=== PATIENT | female | born 1990 ===

== ENCOUNTER 2017-05-04 09:22 | Emergency (ER) | payer MEDICAID ==
[2017-05-04 09:32] VITALS: BP 100/68; PULSE 77; TEMP 97; O2SAT 100
[2017-05-04 09:33] VITALS: BMI 24.4
[2017-05-04 09:47] VITALS: RESP 18
[2017-05-04] MEDS ORDERED: Lactated Ringer's 1,000 ML IV STA (10:22)
--- NOTE | 2017-05-04 10:44 | ED PDOC ---
HPI: General Adult Time Seen by Provider: 05/04/17 09:45 Chief Complaint (Nursing): GI Problem Chief Complaint (Provider): Abdominal pain, left and nausea x 2-3 weeks Additional Complaint(s): 26 yo LMP 02/17/18 comes to the ER for evaluation of abdominal pain on the left and nausea x 4 weeks. Pt states she has appointment for OB today but the clinic was closed due to the weather. PT states she called and was told to come to the ER for evaluation. PT is approx 11 weeks . Pt has not yet had care and has not been taking any vitamins. Pt also reports smoking marijuana because she did not know she was . Past Medical History Reviewed: Historical Data, Nursing Documentation, Vital Signs Vital Signs: Last Vital Signs Temp 97 F L 05/04/17 09:44 Pulse 77 05/04/17 09:44 Resp 18 05/04/17 09:44 BP 100/68 05/04/17 09:44 Pulse Ox 100 05/04/17 10:51 - Medical History PMH: No Chronic Diseases - Surgical History Surgical History: No Surg Hx - Family History Family History: States: No Known Family Hx - Living Arrangements Living Arrangements: With Family - Social History Current smoker - smoking cessation education provided: No - Home Medications Home Medications: Ambulatory Orders Medication Instructions Recorded Doxylamine/Pyridoxine HCl (B6) 2 each PO QPM #28 tablet. 05/04/17 [Eliceo Mims 10-10 mg Tablet] - Allergies Allergies/Adverse Reactions: Allergies Allergy/AdvReac Type Severity Reaction Status Date / Time No Known Allergies Allergy Verified 05/04/17 10:11 Review of Systems ROS Statement: Except As Marked, All Systems Reviewed And Found Negative Constitutional: Negative for: Fever, Chills Gastrointestinal: Positive for: Nausea, Vomiting Genitourinary Female: Positive for: Pelvic Pain (Left side ). Negative for: Vaginal Bleeding Physical Exam - Reviewed Nursing Documentation Reviewed: Yes Vital Signs Reviewed: Yes - Physical Exam Appears: Positive for: Well, Non-toxic, No Acute Distress Head Exam: Positive for: ATRAUMATIC, NORMAL INSPECTION, NORMOCEPHALIC Skin: Positive for: Normal Color, Warm, DRY Eye Exam: Positive for: Normal appearance ENT: Positive for: Normal ENT Inspection Neck: Positive for: Normal, Painless ROM Cardiovascular/Chest: Positive for: Regular Rate, Rhythm Respiratory: Positive for: Normal Breath Sounds. Negative for: Accessory Muscle Use, Respiratory Distress Gastrointestinal/Abdominal: Positive for: Normal Exam, Bowel Sounds, Soft. Negative for: Tenderness Back: Positive for: Normal Inspection Extremity: Positive for: Normal ROM Neurologic/Psych: Positive for: Alert, Oriented - Laboratory Results Result Diagrams: 05/04/17 10:35 05/04/17 10:35 - ECG O2 Sat by Pulse Oximetry: 100 Medical Decision Making Medical Decision Making: (+) IUP on US. Labs normal. Disposition - Clinical Impression Clinical Impression: Nausea/vomiting in - Patient ED Disposition Is Patient to be Admitted: No Counseled Patient/Family Regarding: Diagnosis, Need For Followup, Rx Given - [facility]position [facility] Disposition: Routine/Home Disposition Time: 12:50 Condition: GOOD Additional Instructions: Please begin vitamins. Please seen OB for care. Prescriptions: Doxylamine/Pyridoxine HCl (B6) [Eliceo Mims 10-10 mg Tablet] 2 each PO QPM #28 tablet. Instructions: Morning Sickness (DC) Forms: [facility] (Maltese)
[2017-05-04 10:49] LABS: HEMOGLOBIN 12.4 g/dL (12.0-16.0); MEAN CELL VOLUME 91.9 fl (81.0-99.0); MEAN CORPUSCULAR HEMOGLOBIN 31.7 pg (27.0-31.0); MEAN CORPUSCULAR HGB CONC 34.5 g/dL (33.0-37.0); RBC 3.91 Mil/uL (3.80-5.20); RED CELL DISTRIBUTION WIDTH 15.1 % (11.5-14.5); WHITE BLOOD COUNT 9.5 K/uL (4.8-10.8)
[2017-05-04 11:03] LABS: ALB/GLOB RATIO 1.3 (1.0-2.1); ALBUMIN 3.9 g/dL (3.5-5.0); ALT/SGPT 22 U/L (9-52); AST/SGOT 17 U/L (14-36); BLOOD UREA NITROGEN 10 mg/dl (7-17); CALCIUM 9.2 mg/dL (8.4-10.2); GFR AFRICAN-AMERICAN > 60; GFR NON-AFRICAN AMERICAN > 60; SQUAMOUS EPITHIAL 45 /hpf (0-5); URINE BACTERIA MANY (<OCC); URINE BILIRUBIN NEGATIVE (NEGATIVE); URINE BLOOD SMALL (NEGATIVE); URINE CLARITY CLOUDY (Clear); URINE COLOR AMBER (YELLOW); URINE GLUCOSE (UA) NEG (Normal); URINE LEUKOCYTE ESTERASE SMALL Leu/uL (Negative); URINE NITRATE NEGATIVE (NEGATIVE); URINE PROTEIN 30 mg/dL (NEGATIVE); URINE UROBILINOGEN 0.2-1.0 mg/dL (0.2-1.0)
[2017-05-04 11:10] LABS: BARBITURATES, UR NEGATIVE (NEGATIVE); BENZODIAZEPINES, UR NEGATIVE (NEGATIVE); OPIATES, UR NEGATIVE (NEGATIVE); PHENCYCLIDINE, UR NEGATIVE (NEGATIVE)
--- NOTE | 2017-05-04 12:11 | US ---
PROCEDURE: OB Pelvic Ultrasound HISTORY: abdominal pain in , no care LMP: 02/17/2017 COMPARISON: None available. FINDINGS: UTERUS: Gestational sac: Single intrauterine gestation. Measures 4.9 cm compatible with estimated gestational age of 10 weeks, 4 days Yolk sac: Not visualized pole: [place]-rump length measures 4.2 cm compatible with estimated gestational age of 11 weeks, 1 day Heart rate: 164 bpm. age (Ultrasound estimated): 10 weeks, 6 days [place]-gestational hemorrhage: None. Date of delivery (Ultrasound estimated) : 11/24/2017 Uterus measures 10.5 x 6.6 x 8.3 cm. Anteverted. Normal in size and appearance. CERVIX: Long and closed. No cervical abnormality seen. RIGHT OVARY: Measures 3.3 x 1.8 x 2.7 cm. No mass lesion. Normal flow. LEFT OVARY: Measures 2.8 x 1.6 x 2.7 cm. No solid mass. Normal flow. FREE FLUID: None. OTHER FINDINGS: None. IMPRESSION: Single viable intrauterine gestation with average ultrasound age ten weeks, 6 days. heart rate 164 beats per minute. Cervix long and closed.
== END 2017-05-04 13:23 | disposition home or self-care (01) ==
LOC: H.ER 09:22
DX: O21.9 Vomiting of pregnancy, unspecified (principal); O26.891 Other specified pregnancy related conditions, first trimester; Z3A.11 11 weeks gestation of pregnancy; F12.90 Cannabis use, unspecified, uncomplicated
CPT/HCPCS: 76815; 80053; 80324; 80345; 80346; 80349; 80353; 80358; 80361; 81003; 83992; 84702; 85027; 86850; 86900; 87086; 96360; 99282; J7120

== ENCOUNTER 2017-05-26 15:55 | Emergency (ER) | payer MEDICAID ==
[2017-05-26 15:55] VITALS: BMI 24.4
--- NOTE | 2017-05-26 16:47 | ED PDOC ---
HPI: Female Pain Time Seen by Provider: 05/26/17 16:37 Chief Complaint (Nursing): GI Problem Chief Complaint (Provider): with abd pain History Per: Patient Additional Complaint(s): 26-year-old female, 15 weeks (, has 3 elective abortions in the past) presents with persistent vomiting and inability to keep down liquids or solids for about 1 month. Patient also has cramping abdominal pain. She was given a prescription for diclegis on May 04 and never filled the prescription due to insurance issues. She has been trying to take vitamins but has been unable to keep this down. No associated diarrhea, no fever or chills. No vaginal bleeding. Patient has not had visit as of yet. Past Medical History Reviewed: Historical Data, Nursing Documentation, Vital Signs Vital Signs: Last Vital Signs Temp 98.4 F 05/26/17 16:20 Pulse 100 H 05/26/17 16:20 Resp 18 05/26/17 16:20 BP 113/69 05/26/17 16:20 Pulse Ox 99 05/26/17 16:20 - Medical History PMH: No Chronic Diseases - Family History Family History: States: No Known Family Hx - Living Arrangements Living Arrangements: With Family - Social History Current smoker - smoking cessation education provided: No Alcohol: None Drugs: Denies - Home Medications Home Medications: Ambulatory Orders Medication Instructions Recorded Doxylamine/Pyridoxine HCl (B6) 2 each PO QPM #28 tablet. 05/04/17 [Diclegis Dr 10-10 mg Tablet] Doxylamine/Pyridoxine HCl (B6) 2 tab PO ASDIR #60 tab 05/26/17 [Diclegis Dr 10-10 mg Tablet] - Allergies Allergies/Adverse Reactions: Allergies Allergy/AdvReac Type Severity Reaction Status Date / Time No Known Allergies Allergy Verified 05/04/17 10:11 Review of Systems ROS Statement: Except As Marked, All Systems Reviewed And Found Negative Constitutional: Negative for: Fever Cardiovascular: Negative for: Chest Pain Respiratory: Negative for: Cough Gastrointestinal: Positive for: Nausea, Vomiting, Abdominal Pain. Negative for : Diarrhea Genitourinary Female: Negative for: Dysuria, Vaginal Bleeding Physical Exam - Reviewed Nursing Documentation Reviewed: Yes Vital Signs Reviewed: Yes - Physical Exam Appears: Positive for: Well, Non-toxic, No Acute Distress Skin: Negative for: Rash Eye Exam: Positive for: Normal appearance Cardiovascular/Chest: Positive for: Regular Rate, Rhythm Respiratory: Positive for: Normal Breath Sounds Gastrointestinal/Abdominal: Positive for: Other (Gravid nontender abdomen) Back: Negative for: L CVA Tenderness, R CVA Tenderness Extremity: Positive for: Normal ROM Neurologic/Psych: Positive for: Alert, Oriented - Laboratory Results Result Diagrams: 05/26/17 17:46 05/26/17 17:46 Urine POC: Positive - ECG O2 Sat by Pulse Oximetry: 99 Pulse Ox Interpretation: Normal - Other Rad OB US X-Ray: Read By Radiologist X-Ray Interpretation: see below Medical Decision Making Medical Decision Makin-year-old female, 15 weeks with nausea and vomiting and abdominal pain Plan: Urine dip OB US IVF CBC CMP Beta IV reglan US: FINDINGS: Gestation: Single live intrauterine . Positive heart rate measured at 173 bpm. Variable position. Mean ultrasound age of 14 weeks 3 days. BPD 2.75 cm, AC 8.19 cm, HC 9.97 cm, FL 1.27 cm. Placenta/ amniotic fluid: Posterior. Uterus/cervix: Cervix measured at 3 cm. No acute abnormality as visualized. No myometrial mass. Ovaries: No acute abnormality as visualized. Doppler flow noted. Free fluid: No free fluid. IMPRESSION: Single live IUP as above. Limited study. Patient feels much better, she is tolerating PO with no further emesis noted. Rx given for diclegis. Advised OB follow up KHURRAM. Disposition - Clinical Impression Clinical Impression: Hyperemesis gravidarum, Abdominal pain affecting - Patient ED Disposition Is Patient to be Admitted: No Counseled Patient/Family Regarding: Studies Performed, Diagnosis, Need For Followup, Rx Given - Disposition Referrals: Josephine Jimenez MD [Family Provider] - Disposition: Routine/Home Disposition Time: 19:10 Condition: IMPROVED Additional Instructions: DRINK PLENTY OF FLUIDS AND FOLLOW BLAND DIET TAKE RX MEDS DIRECTED. FOLLOW UP KHURRAM WITH OB. Prescriptions: Doxylamine/Pyridoxine HCl (B6) [Eliceo Mims 10-10 mg Tablet] 2 tab PO ASDIR #60 tab Instructions: Hyperemesis Gravidarum, - The Fourth Month Forms: [employer] (Kazakh) Results - Lab Results Lab Results: 05/26/17 05/26/17 17:46 17:46 WBC 10.0 RBC 4.30 Hgb 13.4 Hct 39.8 MCV 92.6 MCH 31.1 H MCHC 33.6 RDW 14.7 H Plt Count 166 MPV 9.7 Neut % (Auto) 80.3 H Lymph % (Auto) 7.9 L Osborne % (Auto) 10.8 H Eos % (Auto) 0.3 Baso % (Auto) 0.7 Neut # (Auto) 8.0 H Lymph # (Auto) 0.8 L [place] # (Auto) 1.1 H Eos # (Auto) 0.0 Baso # (Auto) 0.1 Neutrophils % (Manual) Pending Lymphocytes % (Manual) Pending Monocytes % (Manual) Pending Platelet Estimate Pending Sodium 139 Potassium 3.7 Chloride 104 Carbon Dioxide 22 Anion Gap 17 BUN 7 Creatinine 0.6 L Est GFR ( Amer) > 60 Est GFR (Non-Af Amer) > 60 Random Glucose 88 Calcium 9.6 Total Bilirubin 0.4 AST 19 ALT 26 Alkaline Phosphatase 56 Total Protein 7.9 Albumin 4.2 Globulin 3.7 Albumin/Globulin Ratio 1.1 Beta HCG, Quant 58635.00
[2017-05-26] MEDS ORDERED: Sodium Chloride 0.9% 1,000 ML IV STA ×2 (17:13→17:14)
[2017-05-26 18:02] LABS: BASO # 0.1 K/uL (0.0-0.2); BASO % 0.7 % (0.0-2.0); EOS % 0.3 % (0.0-4.0); HEMOGLOBIN 13.4 g/dL (12.0-16.0); LYMPH # 0.8 K/uL (1.0-4.3); LYMPH % 7.9 % (20.0-40.0); MEAN CELL VOLUME 92.6 fl (81.0-99.0); MEAN CORPUSCULAR HEMOGLOBIN 31.1 pg (27.0-31.0); MEAN CORPUSCULAR HGB CONC 33.6 g/dL (33.0-37.0); MEAN PLATELET VOLUME 9.7 fl (7.2-11.7); MONO # 1.1 K/uL (0.0-0.8); MONO % 10.8 % (0.0-10.0); NEUT % 80.3 % (50.0-75.0); PLATELET COUNT 166 K/uL (130-400); RED CELL DISTRIBUTION WIDTH 14.7 % (11.5-14.5)
[2017-05-26 18:15] LABS: ALB/GLOB RATIO 1.1 (1.0-2.1); ALBUMIN 4.2 g/dL (3.5-5.0); ALT/SGPT 26 U/L (9-52); AST/SGOT 19 U/L (14-36); BLOOD UREA NITROGEN 7 mg/dl (7-17); CALCIUM 9.6 mg/dL (8.4-10.2); GFR AFRICAN-AMERICAN > 60; GFR NON-AFRICAN AMERICAN > 60
--- NOTE | 2017-05-26 18:42 | US ---
EXAM: US CLINICAL HISTORY: 26 years old, female; Pain; complicated by abdominal or pelvic pain; Generalized abdominal pain; Second trimester; Gestational age or lmp: Lmp: 02/17/2017; ; Additional info: 15 weeks, abd pain TECHNIQUE: Real-time transabdominal obstetrical ultrasound of the maternal pelvis and with image documentation. COMPARISON: No relevant prior studies available. FINDINGS: Gestation: Single live intrauterine . Positive heart rate measured at 173 bpm. Variable position. Mean ultrasound age of 14 weeks 3 days. BPD 2.75 cm, AC 8.19 cm, HC 9.97 cm, FL 1.27 cm. Placenta/amniotic fluid: Posterior. Uterus/cervix: Cervix measured at 3 cm. No acute abnormality as visualized. No myometrial mass. Ovaries: No acute abnormality as visualized. Doppler flow noted. Free fluid: No free fluid. IMPRESSION: Single live IUP as above. Limited study.
[2017-05-26 18:48] VITALS: O2SAT 99
[2017-05-26 19:23] VITALS: BP 103/68; PULSE 86; RESP 16; TEMP 98.2
[2017-05-26 20:30] LABS: EOSINOPHIL 1 % (0-7); LYMPHOCYTE 13 % (20-50); MONOCYTE 7 % (0-10); NEUTROPHIL 78 % (42-75); PLATELET ESTIMATE NORMAL (NORMAL); REACTIVE LYMPHOCYTES 1 % (0-0); TOTAL CELLS COUNTED 100
== END 2017-05-26 19:48 | disposition home or self-care (01) ==
LOC: H.ER 15:55
DX: O21.0 Mild hyperemesis gravidarum (principal); O26.892 Other specified pregnancy related conditions, second trimester; Z3A.15 15 weeks gestation of pregnancy
CPT/HCPCS: 76815; 80053; 81025; 84702; 85025; 96360; 99283; J2765; J7040

== ENCOUNTER → 2017-11-19 | Emergency (ER) | payer MEDICAID ==
[2017-09-21 09:20] VITALS: BMI 24.4
--- NOTE | 2017-11-19 07:22 | OBDCSUM ---
Datetime: 11/19/2017 02:10 Discharged to, Provider: Home Follow up at, Provider: [facility] Disch Instr Activity: Normal activity Disch Instr Diet: Regular Discharge Diagnosis, Provider: False Labor - Undelivered Discharge Time: 11/19/2017 02:10 Follow up in weeks, Provider: 11/23/2017 Disch Referrals: None Discharge Comment, Provider: No cervical change
[2017-11-19 11:50] VITALS: TEMP 98.7
== END | disposition home or self-care (01) ==
LOC: H.EROB2 00:34
DX: O26.93 Pregnancy related conditions, unspecified, third trimester (principal); R10.2 Pelvic and perineal pain; O47.1 False labor at or after 37 completed weeks of gestation; Z3A.39 39 weeks gestation of pregnancy

== ENCOUNTER 2017-11-26 17:47 | Emergency (ER) | payer MEDICAID ==
[2017-09-21 09:20] VITALS: BMI 24.4
--- NOTE | 2017-11-26 23:31 | OBDCSUM ---
Datetime: 11/26/2017 23:11 Discharged to, Provider: Home Follow up at, Provider: [facility] Disch Instr Activity: Normal activity Disch Instr Diet: Regular Discharge Instructions, Provider: Routine instructions given Discharge Time: 11/26/2017 23:11 Follow up in weeks, Provider: 11/27/2017 Disch Referrals: None Discharge Diagnosis Prov Other: Prolonged monitoring
--- NOTE | 2017-11-26 23:31 | OBHP ---
Datetime: 11/26/2017 19:31 IP Adm Impression: Term, intrauterine IP Admit Plan: Observation/Evaluation; Discharge home Admit Comment, IP Provider: 27 y/o , 40.2 wks based on LMP of 02/17/18 with RYAN of 11/24/17 se nt to [facility] from [facility] due to nonreactive NST. As per Dr. Lim patient needs extended NST/EFM monitori ng. Reports lower abdominal pressure and irregular contractions. Patient reports normal movemen ts. Denies LOF or VB. Tolerating diet well PO without any nausea, vomiting, diarrhea, fever, chills. Denies any dysuria or back pain. PNC: Dr. Lim, [facility] course: +THC, followed by negative drug screen. + GBS, Nonreactive NST today at clinic. L ast US 1.5 month ago, Next US tomorrow if discharged today. PObHx: 2 miscarriage at 6 wks and 12 weeks, doesn't remember years PMHx: Denies PSHx: Denies Allergies: NKDA F/H: Noncontributory SocialHx: Denies alcohol/tobacco/drug use PE General: NAD Chest: RRR, S1S2 , no murmurs Lungs: CTA B/L, No wheeze Abdomen: Gravid, NT Back: CVA absent B/L Ext: No pedal edema, Calf tenderness A/P: 27 y/o , 40.2 wks based on LMP of 02/17/18 with RYAN of 11/24/17 sent to [facility] from [facility] d ue to nonreactive NST. - EFM and [place] monitoring - Extended EFM, NST reactive, 140s, with moderate variability, + accels, No decels - Scheduled for US tmorrow - Scheduled for IOL on 11/30/17 Case disussed with the attending Cristino Mendoza, PGY1 OB Hospitalist Addendum: Pt seen by me. Agree w/ above. 27 yo at 40+2 wks sent to OB for prolonged monitoring for nonreactive NST in the office. NST reactive. Prolonged monitoring is reas suring. Pt sent home w/ labor precautions. Pt has an appoint for u/s tomorrow at 11 am and is sched uled for IOL on Fri evening, 11/30/2017. (ES) Pelvic Type - PN: Adequate Extremities - PN: Not Done Abdomen - PN: Normal Back - PN: Normal Breast - PN: Not Done Lungs - PN: Normal Heart - PN: Normal Thyroid - PN: Not Done Neurologic - PN: Normal HEENT - PN: Normal General - PN: Normal FHR - Baseline A Provider: 120's Comments, ACOG Physical Exam: General: NAD Chest: RRR, S1S2 , no murmurs Lungs: CTA B/L, No wheeze Abdomen: Gravid, NT Back: CVA absent B/L Ext: No pedal edema, Calf tenderness IP Hx Assessment: The History has been Reviewed and is Current EGA AdmitDate IP: 40.2 IP Chief Complaint: evaluation NICHD Variability Prov Fetus A: Moderate 6-25bpm NICHD Accel Fetus A IP Provider: [id number] FHR Category Provider Fetus A: Category I NICHD Decel Fetus A IP Provider: None Genitourinary Exam: Not Done DTRs - PN: Normal Datetime: 11/19/2017 01:07 Presentation-Admit: Vertex IP Fetus A Comments: sono Membranes, Provider: Intact Contraction Comments Provider: occ Pool Provider: Negative Dilatation, Provider: 1-2 Effacement, Provider: long Station, Provider:
== END 2017-11-26 23:11 | disposition home or self-care (01) ==
LOC: H.EROB2 17:47
DX: O26.93 Pregnancy related conditions, unspecified, third trimester (principal); R10.2 Pelvic and perineal pain; Z3A.40 40 weeks gestation of pregnancy; O48.0 Post-term pregnancy

== ENCOUNTER 2017-11-27 03:02 | Inpatient (IN) | payer MEDICAID ==
[2017-11-27] MEDS ORDERED: Penicillin G Potassium 5 MU in Sodium Chloride 0.9% 50 ML IVPB ONE (03:50)
[2017-11-27] MEDS ORDERED: Lactated Ringer's 1,000 ML IV ONE (03:50)
--- NOTE | 2017-11-27 05:24 | OBADHP ---
Datetime: 11/27/2017 04:04 Admit Comment, IP Provider: 27 y/o , 40.3 wks based on LMP of 02/17/18 with RYAN of 11/24/17 se nt to [facility] from for uterine contractions. Contractions are more regular, Q3-5 mins, increased in inte nsity and pressure. Patient was evaluated in [facility] yesterday for peolonged EFM which was reactive. Pat ient reports normal movements. Denies LOF or VB. PNC: Dr. Lim, [facility] course: +THC, followed by negative drug screen. + GBS, Nonreactive NST yesterday at [facility]. Last US 1.5 month ago PObHx: 2 miscarriage at 6 wks and 12 weeks, doesn't remember years PMHx: Denies PSHx: Denies Allergies: NKDA F/H: Noncontributory SocialHx: Denies alcohol/tobacco/drug use PE General: in acute distress Chest: RRR, S1S2 , no murmurs Lungs: CTA B/L, No wheeze Abdomen: Gravid, NT Ext: No pedal edema or Calf tenderness SVE: 3 cm/100%/-1 A/P: 27 y/o , 40.3 wks presents with painful uterine contractions Q3-5mins - EFM and [place] monitoring - 3/100%/-1 on cervical exam - Admit patient to unit - LR 2L@ 999ml/hr - LR 1L @125 ml/hr - GBS +, Penicillin 5 million unit/100 ml followed by 2.5 million unit Q4hr - CBC, Type and screen - Anesthesia consult - NPO Case discussed with attending Cristino Mendoza, PGY1 OB Hospitalist Addendum: Pt seen and examined by me. Agree a/ above. 27 yo at 40+3 wks w/ painful ctxns, in labor. Pt desires an epidural. Wll start PCN for GBS prophylaxis. (ES) Pelvic Type - PN: Not Done Extremities - PN: Normal Abdomen - PN: Normal Back - PN: Normal Breast - PN: Normal Lungs - PN: Normal Heart - PN: Normal Thyroid - PN: Not Done Neurologic - PN: Normal HEENT - PN: Normal General - PN: Normal FHR - Baseline A Provider: 120 Membranes, Provider: Intact Contraction Comments Provider: regular Comments, ACOG Physical Exam: General: in acute distress Chest: RRR, S1S2 , no murmurs Lungs: CTA B/L, No wheeze Abdomen: Gravid, NT Ext: No pedal edema, Calf tenderness SVE: 3 cm/100%/-1 IP Hx Assessment: The History has been Reviewed and is Current Vital Signs Provider: Reviewed; Within Normal Limits IP Chief Complaint: Uterine contractions; Maternal discomfort FHR Category Provider Fetus A: Category I NICHD Decel Fetus A IP Provider: None Dilatation, Provider: 3 Effacement, Provider: 100 Station, Provider: -1 Genitourinary Exam: Normal DTRs - PN: Not Done EGA AdmitDate IP: 40.3 IP Adm Impression: Term, intrauterine IP Admit Plan: Admit to unit Datetime: 11/27/2017 03:56 NICHD Variability Prov Fetus A: Moderate 6-25bpm NICHD Accel Fetus A IP Provider: [id number] Datetime: 11/19/2017 01:07 Presentation-Admit: Vertex IP Fetus A Comments: sono Pool Provider: Negative
[2017-11-27] MEDS: Lactated Ringer's 1,000 ML IV SCH ×2 (06:00→13:36)
[2017-11-27 06:19] VITALS: BMI 26.9
[2017-11-27] MEDS ORDERED: Fentanyl/Bupivacaine HCl 250 ML EPI ONE (06:19)
[2017-11-27] MEDS ORDERED: Penicillin G 5 Million Unit Vial IVPB ONE (06:57)
[2017-11-27 07:57] LABS: BASO # 0.1 K/uL (0.0-0.2); BASO % 1.1 % (0.0-2.0); EOS # 0.2 K/uL (0.0-0.7); EOS % 1.4 % (0.0-4.0); HEMOGLOBIN 11.7 g/dL (12.0-16.0); LYMPH # 2.5 K/uL (1.0-4.3); LYMPH % 21.2 % (20.0-40.0); MEAN CELL VOLUME 82.6 fl (81.0-99.0); MEAN CORPUSCULAR HGB CONC 32.6 g/dL (33.0-37.0); MONO # 1.1 K/uL (0.0-0.8); MONO % 9.3 % (0.0-10.0); NRBC % 0.1 % (0.0-0.0); RBC 4.33 Mil/uL (3.80-5.20); RED CELL DISTRIBUTION WIDTH 15.4 % (11.5-14.5)
[2017-11-27 08:19] VITALS: O2SAT 100
[2017-11-27] MEDS ORDERED: Lidocaine 2% PF (10 ml) Amp ONE (11:43)
[2017-11-27] MEDS ORDERED: Oxytocin 30 UNIT 30 UNITS/500 ML BAG IV ONE (12:26)
[2017-11-27] MEDS ORDERED: OXYTOCIN/0.9 % NS 20 UNIT/1,000 ML BAG IV SCH (12:30)
--- NOTE | 2017-11-27 12:42 | OBPN ---
Datetime: 11/27/2017 12:35 IP Progress Impression: Reassuring heart rate IP Informed Consent Obtain: Vaginal Delivery IP Procedures: Artificial ROM IP Progress Plan: Continue present management; Augmentation; Anticipate Vaginal Delivery Pool Provider: Negative Membranes, Provider: Ruptured Amniotic Fluid Color, Provider: Clear Contraction Comments Provider: occ FHR - Baseline A Provider: 120 Presentation-Admit: Vertex NICHD Accel Fetus A IP Provider: [id number] FHR Category Provider Fetus A: Category I NICHD Variability Prov Fetus A: Moderate 6-25bpm Dilatation, Provider: 6 Effacement, Provider: 90 Station, Provider: 0 NICHD Decel Fetus A IP Provider: None Datetime: 11/27/2017 09:00 IP Progress Note Comment: S: Patient laying in bed comfortably s/p epidural O: SVE (Chaperoned by Fellow Dr. Connelly) 4cm dilated, long, and bulging A: 27 y/o , 40.3 wks presents c/o painful uterine contractions Q3-5mins P: cont present mangement, pencillin G at 11 Vital Signs Provider: Reviewed; Within Normal Limits Datetime: 11/19/2017 01:07 IP Fetus A Comments: torsteno
--- NOTE | 2017-11-27 15:17 | OBPN ---
Datetime: 11/27/2017 15:00 IP Progress Impression: Normal progression of labor IP Progress Plan: Continue present management; Anticipate Vaginal Delivery Pool Provider: Positive Membranes, Provider: Ruptured Amniotic Fluid Color, Provider: Clear Contraction Comments Provider: q3-5m FHR - Baseline A Provider: 120 IP Progress Note Comment: She feels lower pelvic pressure Second stage of labor - anticiapte NICHD Accel Fetus A IP Provider: [id number] FHR Category Provider Fetus A: Category I NICHD Variability Prov Fetus A: Moderate 6-25bpm Dilatation, Provider: 10 Effacement, Provider: 100 Station, Provider: 1 NICHD Decel Fetus A IP Provider: None Datetime: 11/27/2017 09:00 Gestation - Est Wks by US: 40.3
--- NOTE | 2017-11-27 15:23 | OBPN ---
Datetime: 11/27/2017 09:00 IP Progress Note Comment: S: Patient laying in bed comfortably s/p epidural O: SVE (Chaperoned by Fellow Dr. Connelly) 4cm dilated, long, and bulging A: 27 y/o , 40.3 wks presents c/o painful uterine contractions Q3-5mins P: cont present mangement, pencillin G at 11 Case discussed w/ attending physician Kaitlyn Vu PGYI OB Hospitalist on-call - sign out rec'd...made aware of pregress - pt has epidural only and is rel ieved of pain. ALYSSA
[2017-11-27] MEDS ORDERED: Benzocaine/Menthol SPRAY TOP PRN ×2 (16:08→17:42)
[2017-11-27] MEDS: Oxycodone/Acetaminophen 5/325 mg Tab PO PRN (22:44)
[2017-11-28 06:36] LABS: BASO % 0.2 % (0.0-2.0); EOS # 0.2 K/uL (0.0-0.7); LYMPH # 2.2 K/uL (1.0-4.3); LYMPH % 14.6 % (20.0-40.0); MEAN CELL VOLUME 83.4 fl (81.0-99.0); MEAN CORPUSCULAR HEMOGLOBIN 27.6 pg (27.0-31.0); MEAN CORPUSCULAR HGB CONC 33.1 g/dL (33.0-37.0); MEAN PLATELET VOLUME 10.4 fl (7.2-11.7); MONO # 1.2 K/uL (0.0-0.8); MONO % 7.8 % (0.0-10.0); NEUT # 11.6 K/uL (1.8-7.0); NEUT % 76.4 % (50.0-75.0); NRBC % 0.1 % (0.0-0.0); RBC 2.9 Mil/uL (3.80-5.20); RED CELL DISTRIBUTION WIDTH 15.5 % (11.5-14.5); WHITE BLOOD COUNT 15.1 K/uL (4.8-10.8)
[2017-11-28] MEDS: Oxycodone/Acetaminophen 5/325 mg Tab PO PRN ×3 (08:28→22:33)
--- NOTE | 2017-11-28 10:23 | OBPPN ---
Datetime: 11/28/2017 06:00 PP Pain Prov: Within normal limits PP Nausea Prov: Denies PP Flatus Prov: Yes PP BM Prov: No PP Breasts Prov: Abnormal PP Heart Prov: Normal PP Lungs Prov: Normal PP Abdomen/Uterus Prov: Normal PP Lochia Prov: Normal PP CVA Tenderness Prov: Not Done PP Extremities Prov: Normal PP C/S Incision Prov: Not Applicable PP Progress Prov: Abnormal PP Comments Phys Exam Prov: Lochia>menstrual Vulva wnl for PP female /Lt Breast nipple pain PP Impression Prov: Normal progression; difficulties PP Plan Prov: Continue present management; consult PP Progress Note Prov: S: Pt reports "things are going well" with minimal vulvar pain 2-3/, she is eating well without N/V. is going well but some LEFT nipple pain. Denies SOB, palpita tions, dysuria. 01/09/2018-rosa. O: AVSS, PE as above, Reg diet, UOP wnl A/P: 27F , GBS+ and rec'd x3 doses antibiotics, s/p for a live female without comp lications and is currently with minimal difficulities, pain is controlled, tolerating P O with appropriate elimination at this time. - Activity: up ad cecily, frequent ambulation - Diet: Regular - Pain: Ibuprofen PRN - : needs re-consult, needs breast pump form/application - PP appt: 01/09-rosa with Dr Eldridge (will provide details to Dr Mendoza) - Appt: 12/03/2017 @ 0820 - Vaccines: Influenza - Dispo: discharge 11/29 to home [facility] Sousa Patient seen and evaluated by me this am. Agree with above resident note. Ambulation and breastfee ding encouraged. Continue Motrin for pain. --Dr. Miles IP PP Procedures: None Vital Signs Provider PP: Reviewed; Within Normal Limits
[2017-11-29] MEDS: Oxycodone/Acetaminophen 5/325 mg Tab PO PRN (10:49)
--- NOTE | 2017-11-29 11:51 | OBPPN ---
Datetime: 11/29/2017 06:19 PP Pain Prov: Within normal limits PP Nausea Prov: Denies PP Flatus Prov: Yes PP BM Prov: Yes PP Breasts Prov: Not Done PP Heart Prov: Normal PP Lungs Prov: Normal PP Abdomen/Uterus Prov: Normal PP Lochia Prov: Normal PP Vulva/Perineum Prov: Not Done PP CVA Tenderness Prov: Normal PP Extremities Prov: Normal PP C/S Incision Prov: Not Applicable PP Progress Prov: Normal PP Impression Prov: Normal progression PP Plan Prov: Continue present management PP Progress Note Prov: Patient seen and evaluated at bedside in AM. Patient is 27 y/o s/p NV SD on PPD2. Abdominal pain minimal, well controlled with pain medications. Tolerating diet well PO. Passing fl atus and had BM yesterday. w/o difficulties. Voiding well. Denies F/C, N/V, dizziness, or headache. Declines flu vaccine. VSS WNL GEN: NAD Cardio: RRR, S1S2 Lungs: CTA B/L Abdomen: BS+, appropriated tendenrness, fundus at umbilicus, firm. Ext: No edema Neuro/psych: AAOx3 A/P: Patient is 27 y/o s/p NVSD on PPD2 with normal progression. - Enocuraged and ambulation - Continue PNVs - Ibuprofen 600 mg for pain - diet as tolerated - anticipated dischage today 11/29/17 - Declined flu vaccine Case discussed with attending Cristino steven, PGY1 Attending addendum, I saw and examined the patient myself this morning. I reviewed the resident note above and agree w ith findings and management. DC home today. f/u in 4-6wks . Shannon Brown MD Vital Signs Provider PP: Reviewed; Within Normal Limits
--- NOTE | 2017-11-29 11:51 | OBDCSUM ---
Datetime: 11/29/2017 07:39 Discharged to, Provider: Home Follow up at, Provider: Dr. Eldridge/BILL Disch Instr Activity: Normal activity Disch Instr Diet: Regular Discharge Instructions, Provider: Routine instructions given Discharge Diagnosis, Provider: Term Delivered Follow up in weeks, Provider: 4-6 wks Disch Referrals: None Contraception discussed, Prov: Yes Disch Activity Restrictions: No sexual activity; Nothing in vagina - [place], tampons, douche Discharge Comment, Provider: EGA: 40.3 wks Diagnosis: risk factors: GBS + [place]: 11/27/17 @15:39, baby girl, Weight: 3620, 8/9. Post- Summary: Patient is on PPD2 with normal progression. No maternal co mplications during post- period. Lochia less than menses. Tolerating regular diet, Fundus firm below umbilicus, able to ambulate w/o any difficulties, voiding well, denies fever, chills, NEWELL, SOB, N/V, calf pain. CBC post-: 8.0/24.2 Discharge Instructions: Encourage PNV 1 tab po daily Ibuprofen 600mg 1 tab prn for mild-mod pain Feosol 325 PO BID daily [place] PO Tab HS for constipation [facility] OCP pack with 3 refills ER precautions: If excessive bleeding or fever without relief from medication, go to ED PT was urged if feeling sad, mood swing, depression, neglect of baby, suicidal thoughts, homicidal thought should go to ER or call 911 for help Follow up with Dr. Eldridge in 4-6 wks for F/U. Case discussed with attending Cristino Mendoza, PGY1 Attending addendum, I saw and examined the patient myself this morning. I reviewed the resident note above and agree w ith findings and management. DC home today. f/u in 4-6wks . Shannon Brown MD Contraception after Delivery: Control Pill/Patch Datetime: 11/26/2017 23:11 Disch Instr Activity: Normal activity Discharge Comment, Provider:
[2017-11-29 18:59] VITALS: BP 107/76; PULSE 83; RESP 20; TEMP 98.1
== END 2017-11-29 13:35 | disposition home or self-care (01) | DRG 373 ==
LOC: H.EROB2 03:02 → H.L&D 03:45 → H.OB/GYN 19:00
PROVIDERS: ADMIT Obstetrics & Gynecology; ATTEND Obstetrics & Gynecology
PROC: 10E0XZZ Delivery of Products of Conception, External Approach (ICD-10-PCS; principal; 2017-11-27)
PROC: 4A1HXCZ Monitoring of Products of Conception, Cardiac Rate, External Approach (ICD-10-PCS; 2017-11-27)
PROC: 0UQMXZZ Repair Vulva, External Approach (ICD-10-PCS; 2017-11-27)
DX: O69.81X0 Labor and delivery complicated by cord around neck, without compression, not applicable or unspecified (principal); O99.824 Streptococcus B carrier state complicating childbirth; O70.9 Perineal laceration during delivery, unspecified; O71.89 Other specified obstetric trauma; Z3A.40 40 weeks gestation of pregnancy; Z37.0 Single live birth